=== PATIENT | female | born 1960 | race Caucasian/White ===

== ENCOUNTER 2017-12-01 10:09 | Emergency (ER) | payer SELFPAY ==
[~2017-12-01] VITALS: Ht 170.2 cm; Wt 141.5 kg
[~2017-12-01 10:09] MED LIST: CALCIUM CARBON650 MG PO; CELEXA40 MG PO; COLACE100 MG PO; INDERAL60 MG PO; K-DUR20 MEQ PO; KLOR-CON20 MEQ PO; LASIX20 MG; LASIX20 MG PO; LISINOPRIL40 MG PO; NAPROSYN500 MG PO; OMEPRAZOLE40 M1 PO; ROXICODONE5 MG PO; TIROSINT75 MCG PO; TRAMADOL HCL50 MG PO; ZANTAC150 MG PO; ZESTRIL,PRINIVI40 MG PO
[2017-12-01 10:58] LABS: HEMATOCRIT 41.6 % (36.0-46.0); HEMOGLOBIN 13.5 G/DL (11.9-15.5); MCH 29.4 PG (29.0-34.0); MCHC 32.5 G/DL (30.0-36.0); MCV 90.6 FL (83-99); PLATELET COUNT 284 K/uL (156-360); RBC DIS.WIDTH-SD 49.5 % (39-53); RED BLOOD COUNT 4.59 M/uL (3.80-5.20); WHITE BLOOD COUNT 11.3 K/uL (4.1-10.2)
[2017-12-01 11:10] LABS: CHLORIDE 99 mEq/L (99-109); POTASSIUM 4.5 mEq/L (3.7-5.4); SODIUM 136 mEq/L (136-147)
[2017-12-01 11:14] LABS: GLUCOSE 476 mg/dL (70-99)
[2017-12-01 11:15] LABS: CREATININE 0.9 mg/dL (0.6-1.3); GFR ESTIMATE (CALCULATED) > 59 mL/min/
[2017-12-01 11:16] LABS: UREA NITROGEN (BUN) 12 mg/dL (9-23)
[2017-12-01] MEDS ORDERED: INDERAL80 MG PO (11:40)
[2017-12-01] MEDS ORDERED: LEVOTHYROXINE150 MCG PO (11:40)
[2017-12-01] MEDS ORDERED: METFORMIN HCL500 MG PO ×2 (11:41→12:21)
[2017-12-01 13:25] VITALS: BP 146/92
== END 2017-12-01 13:27 | disposition home or self-care (01) ==
LOC: EME 10:09
DX: E11.65 Type 2 diabetes mellitus with hyperglycemia (principal); R51 Headache; J30.1 Allergic rhinitis due to pollen; I10 Essential (primary) hypertension; E03.9 Hypothyroidism, unspecified; F32.9 Major depressive disorder, single episode, unspecified; Z79.84 Long term (current) use of oral hypoglycemic drugs; Z88.0 Allergy status to penicillin
CPT/HCPCS: 71046; 80048; 85027; 99281; 99285

== ENCOUNTER 2017-12-12 12:51 | Emergency (ER) | payer SELFPAY ==
[~2017-12-12] VITALS: Ht 157.5 cm; Wt 143.7 kg
[~2017-12-12 12:51] MED LIST changes: +INDERAL80 MG PO; +LEVOTHYROXINE150 MCG PO; +METFORMIN HCL500 MG PO
[2017-12-12] MEDS ORDERED: CELEXA40 MG PO (13:29)
[2017-12-12] MEDS ORDERED: GLUCOPHAGE500 MG PO (13:29)
[2017-12-12] MEDS ORDERED: INDERAL40 MG PO (13:29)
[2017-12-12 13:50] VITALS: BP 142/81
== END 2017-12-12 14:06 | disposition home or self-care (01) ==
LOC: EME 12:51
DX: E11.9 Type 2 diabetes mellitus without complications (principal); Z76.0 Encounter for issue of repeat prescription; Z88.0 Allergy status to penicillin; Z79.84 Long term (current) use of oral hypoglycemic drugs
CPT/HCPCS: 99281; 99284

== ENCOUNTER 2017-12-29 13:29 | Emergency (ER) | payer OTHER ==
[~2017-12-29] VITALS: Ht 170.2 cm; Wt 142.3 kg
[~2017-12-29 13:29] MED LIST changes: +GLUCOPHAGE500 MG PO; +INDERAL40 MG PO
[2017-12-29] MEDS ORDERED: SYNTHROID150 MCG PO (14:03)
[2017-12-29 14:10] VITALS: BP 139/72
== END 2017-12-29 14:12 | disposition home or self-care (01) ==
LOC: EME 13:29
DX: E03.9 Hypothyroidism, unspecified (principal); Z76.0 Encounter for issue of repeat prescription; Z88.0 Allergy status to penicillin; Z91.010 Allergy to peanuts
CPT/HCPCS: 99281; 99283

== ENCOUNTER 2018-01-03 16:42 | Emergency (ER) | payer OTHER ==
[~2018-01-03] VITALS: Ht 170.2 cm; Wt 143.6 kg
[~2018-01-03 16:42] MED LIST changes: +SYNTHROID150 MCG PO
[2018-01-03] MEDS ORDERED: GLUCOPHAGE500 MG PO (17:40)
[2018-01-03] MEDS ORDERED: INDERAL40 MG PO (17:40)
[2018-01-03 17:54] VITALS: BP 126/69
== END 2018-01-03 17:55 | disposition home or self-care (01) ==
LOC: EME 16:42
DX: I10 Essential (primary) hypertension (principal); E11.9 Type 2 diabetes mellitus without complications; Z79.84 Long term (current) use of oral hypoglycemic drugs; Z76.0 Encounter for issue of repeat prescription; Z87.891 Personal history of nicotine dependence
CPT/HCPCS: 99281; 99283

== ENCOUNTER 2018-01-24 15:45 | Emergency (ER) | payer OTHER ==
[~2018-01-24] VITALS: Ht 177.8 cm; Wt 141.1 kg
[2018-01-24 15:50] VITALS: BP 129/82
[2018-01-24] MEDS ORDERED: CELEXA40 MG PO (17:09)
== END 2018-01-24 17:19 | disposition home or self-care (01) ==
LOC: EME 15:45
DX: F32.9 Major depressive disorder, single episode, unspecified (principal); Z76.0 Encounter for issue of repeat prescription; I10 Essential (primary) hypertension; Z88.0 Allergy status to penicillin; Z87.891 Personal history of nicotine dependence
CPT/HCPCS: 99281; 99283